=== PATIENT | female | born 2005 | race Caucasian/White ===

== ENCOUNTER 2023-06-15 12:55 | Outpatient (CLI) | payer BC, SELFPAY ==
[2023-06-15 23:25] LABS: Chlamydia DNA Amplified* NOT DETECTED (No Detected); GC DNA Amplified* NOT DETECTED (No Detected)
== END 2023-06-15 12:56 | disposition home or self-care (01) ==
PROVIDERS: Visit Provider Registered Nurse
DX: R30.0 Dysuria (principal)
CPT/HCPCS: 87491; 87591